=== PATIENT | male | born 1965 | race American Indian/Alaskan Native ===

== ENCOUNTER 2021-08-18 10:00 | Outpatient (CLI) | payer OTHER ==
--- NOTE | 2021-08-18 11:24 | XRay Report ---
LUMBOSACRAL SPINE 3 VIEWS INDICATION: Back pain. COMPARISON: None. IMPRESSION: Normal alignment. 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 Minimal degenerative changes are identified at L2-3 and L3-4. The SI joints are un remarkable. No acute osseous or soft tissue abnormality. LEFT SHOULDER 3 VIEWS INDICATION: Left shoulder pain. COMPARISON: None. IMPRESSION: No acute osseous or soft tissue abnormality. Moderate osteoarthritic changes are iden tified at the AC joint and glenohumeral joint. RIGHT HAND 2 VIEWS INDICATION: RIGHT HAND PAIN. COMPARISON: None. IMPRESSION: No acute osseous or soft tissue abnormality. Mild degenerative changes are identified throughout the fingers. No erosive joint pathology. Signer Name: Jeff Bryan Jr, MD Signed: 08/18/2021 11:19 AM Workstation Name: [id number]
== END 2021-08-18 10:01 | disposition home or self-care (01) ==
LOC: XRAY 10:00
PROVIDERS: ATTEND Internal Medicine
DX: M47.817 Spondylosis without myelopathy or radiculopathy, lumbosacral region (principal); M19.012 Primary osteoarthritis, left shoulder; M19.041 Primary osteoarthritis, right hand
CPT/HCPCS: 72100